=== PATIENT | female | born 1980 | race Caucasian/White ===

== ENCOUNTER 2017-03-06 21:19 | Emergency (ER) | payer OTHER ==
[2017-03-06 22:12] LABS: BASO % 0.2 % (0.1-1.2); EOS % 0.7 % (0.7-5.8); GRAN # 5.2 10_X3_uL (1.6-6.1); GRAN % 87.4 % (34.0-71.1); HEMATOCRIT 35.3 % (34-45); HEMOGLOBIN 11.8 g/dL (11.2-15.7); LYMPH # 0.5 10_X3_uL (1.2-3.7); LYMPH % 8.2 % (19.3-51.7); MEAN CORPUSCULAR HGB CONC 33.4 g/dL (32.0-36.0); MEAN CORPUSCULAR VOLUME 92.7 fL (79-95); MEAN PLATELET VOLUME 9.8 fl (7.5-11.5); MONO # 0.2 10_X3_uL (0.2-0.9); MONO % 3.5 % (4.7-12.5); PLATELET COUNT 289 x10_3/uL (182-369); RED BLOOD COUNT 3.81 x10_6/uL (3.9-5.2); RED CELL DISTRIBUTION WIDTH 13.3 % (11.7-14.4); WHITE BLOOD COUNT 5.9 x10_3/uL (4.0-10.0)
[2017-03-06 22:27] LABS: ALBUMIN 3.8 gm/dL (3.4-5.0); ALKALINE PHOSPHATASE 77 U/L (50-136); ALT/SGPT 11 U/L (3.5-33.9); AST/SGOT 15 U/L (7.04-26.96); BILIRUBIN,TOTAL 0.55 mg/dL (0.0-1.0); BLOOD UREA NITROGEN 12 mg/dL (7-18); CALCIUM 8.2 mg/dL (8.7-10.7); CARBON DIOXIDE 24 mmol/L (21-32); CREATININE 0.7 mg/dL (0.6-1.3); GLUCOSE,RANDOM 111 mg/dL (70-99); LIPASE 22 U/L (6.75-60.75); POTASSIUM 3.5 mmol/L (3.5-5.1); SODIUM 139 mmol/L (136-145)
== END 2017-03-06 23:13 | disposition home or self-care (01) ==
LOC: ER 21:19
PROVIDERS: Internal Medicine
DX: K52.9 Noninfective gastroenteritis and colitis, unspecified (principal); R11.2 Nausea with vomiting, unspecified; F31.9 Bipolar disorder, unspecified; Z79.899 Other long term (current) drug therapy
CPT/HCPCS: 36415; 80053; 83690; 85025; 87400; 96365; 99070; 99283-25; G0328-QW